=== PATIENT | male | born 1950 | race Caucasian/White ===

== ENCOUNTER 2017-04-15 06:46 | Day surgery (SDC) | payer MEDICARE ==
[~2017-04-15] VITALS: Ht 177.8 cm; Wt 129.1 kg
[~2017-04-15 06:46] MED LIST: AMLO10TA2 PO; ATOR10 PO; BENZ-51 PO; FENO145T37 PO; FLUT16H NASAL; FURO20TA4 PO; GABA-531 PO; GLIP5TAB11 PO; METO100T14 PO; OMEP40CA37 PO; SODIUM CHLORIDE 0.9% 1000ML 1,000 ML IV ONE
[2017-04-15 07:14] VITALS: BP 159/76
[2017-04-15] MEDS ORDERED: VALS160T28 PO (07:38)
[2017-04-15] MEDS ORDERED: PROPOFOL 10 MG/ML 20ML VIAL IV ONE (08:00)
[2017-04-15 08:15] VITALS: BP 90/51
== END 2017-04-15 09:00 | disposition home or self-care (01) ==
LOC: DAH 06:46 → ENDO 06:46
PROVIDERS: ATTEND Internal Medicine Gastroenterology
DX: K21.9 Gastro-esophageal reflux disease without esophagitis (principal); I10 Essential (primary) hypertension; E78.5 Hyperlipidemia, unspecified; E11.9 Type 2 diabetes mellitus without complications; Z98.890 Other specified postprocedural states; Z96.60 Presence of unspecified orthopedic joint implant; Z88.6 Allergy status to analgesic agent
CPT/HCPCS: 43248; 82948 ×2; 93005; A4606; J2704; J7030; G9654

== ENCOUNTER → 2018-08-17 | Outpatient (CLI) | payer OTHER ==
[~2018-08-17] MED LIST changes: -AMLO10TA2 PO; +AMLO10TA7 PO; -ATOR10 PO; -BENZ-51 PO; -FLUT16H NASAL; -GABA-531 PO; -OMEP40CA37 PO; -SODIUM CHLORIDE 0.9% 1000ML 1,000 ML IV ONE; +VALS160T29 PO
== END | disposition home or self-care (01) ==
LOC: RAH 14:08
PROVIDERS: ATTEND Internal Medicine Cardiovascular Disease
DX: Z13.6 Encounter for screening for cardiovascular disorders (principal)
CPT/HCPCS: 75571

== ENCOUNTER → 2018-09-09 | Outpatient (CLI) | payer MEDICARE ==
[~2018-09-09] MED LIST changes: +REGADENOSON 0.4 MG/5 ML PF SYG IVP SCH
== END | disposition home or self-care (01) ==
LOC: RAH 08:43
PROVIDERS: ATTEND Internal Medicine Cardiovascular Disease
DX: I10 Essential (primary) hypertension (principal); R07.89 Other chest pain
CPT/HCPCS: 78452; 93017; 96374; A9500 ×2; J2785

== ENCOUNTER 2020-09-14 06:05 | Day surgery (SDC) | payer OTHER ==
[2020-09-13 15:24] LABS: BASOPHILS % (AUTO) 0.8 % (0.0-5.0); EOSINOPHILS % (AUTO) 4.7 % (0.0-8.0); HEMATOCRIT 39.3 % (42-54); LYMPHOCYTES % (AUTO) 25.1 % (21.0-51.0); MEAN CORPUSCULAR HGB CONC 33.8 g/dL (32.0-36.0); MEAN CORPUSCULAR VOLUME 88.5 fL (79-99); MONOCYTES % (AUTO) 7.1 % (3.0-13.0); NEUTROPHILS % (AUTO) 60.4 % (40.0-77.0); PLATELET COUNT (AUTO) 162 K/uL (130-400); RED BLOOD CELL COUNT(AUTO) 4.44 MIL/uL (4.50-6.20); RED CELL DISTRIBUTION WIDTH 13.5 % (11.0-15.5); WHITE BLOOD COUNT (AUTO) 6.5 K/uL (4.8-10.8)
[2020-09-13 15:26] LABS: APPEARANCE,URINE Clear (CLEAR); BILIRUBIN,URINE Negative (NEGATIVE); COLOR,URINE Yellow (YELLOW); GLUCOSE, URINE (UA) Negative (NEGATIVE); KETONES,URINE Negative (NEGATIVE); LEUKOCYTE ESTERASE ,URINE Negative (NEGATIVE); NITRATE,URINE Negative (NEGATIVE); OCCULT BLOOD,URINE Large (NEGATIVE); PROTEIN,URINE 300 mg/dL (NEGATIVE); UROBILINOGEN,URINE 0.2 mg/dL (0.2-1.0)
[2020-09-13 15:29] VITALS: BP 185/85
[2020-09-13 15:31] LABS: CREATININE 2.1 mg/dL (0.5-1.5); POTASSIUM 4.1 mmol/L (3.5-5.1)
[2020-09-13 15:33] LABS: PROTHROMBIN TIME 10.9 SEC (9.6-11.6)
[2020-09-13 15:34] LABS: PARTIAL THROMBOPLASTIN TIME 23.8 SEC (26.3-35.5)
[2020-09-13 15:49] LABS: BACTERIA,URINE Few /HPF (None Seen); MUCUS,URINE Few LPF (None Seen); SQUAMOUS EPITHELIAL CELL,UR 0-2 /HPF (0-2)
[~2020-09-14] VITALS: Ht 180.3 cm; Wt 124.7 kg
[2020-09-14] VITALS (21 sets, daily range): BP systolic 93–171; BP diastolic 65–80
[~2020-09-14 06:05] MED LIST changes: -AMLO10TA7 PO; +CARV25TA PO; +FENO145T26 PO; -FENO145T37 PO; -FURO20TA4 PO; +FURO40TA5 PO; +GLIP10TA9 PO; -GLIP5TAB11 PO; -METO100T14 PO; +OMEP20CA12 PO; -REGADENOSON 0.4 MG/5 ML PF SYG IVP SCH; +SPIR25TA PO; +UBIQ100C2 PO; -VALS160T29 PO; +VITA-382 PO
[2020-09-14] MEDS ORDERED: NACL 0.9% 1000ML 1,000 ML IV ONE (06:12)
[2020-09-14] MEDS ORDERED: LIDOCAINE PF 100MG/5ML (2%) SYRINGE 5ML ONE (07:18)
[2020-09-14] MEDS ORDERED: MIDAZOLAM HCL 1 MG/ML 2ML VIAL ONE (07:18)
[2020-09-14] MEDS ORDERED: SUCCINYLCHOLINE CHLORIDE 20 MG/ML 10 ML VIAL ONE (07:18)
[2020-09-14] MEDS ORDERED: PROPOFOL 10 MG/ML 20ML VIAL IV ONE ×2 (07:18→07:21)
[2020-09-14] MEDS ORDERED: GLYCOPYRROLATE 1 MG/5 ML SYRINGE ONE (07:18)
[2020-09-14] MEDS ORDERED: DEXAMETHASONE SOD PHOSPHATE 10MG/ML 1ML VIAL ONE (07:18)
[2020-09-14] MEDS ORDERED: FENTANYL CITRATE PF 50 MCG/1 ML 2ML VIAL ONE (07:19)
[2020-09-14] MEDS ORDERED: ONDANSETRON 4MG INJ ONE (07:19)
[2020-09-14] MEDS ORDERED: SODIUM BICARB 50MEQ 50ML VIAL 50 ML ONE (07:19)
[2020-09-14] MEDS ORDERED: ROCURONIUM 10MG/1ML SYR 10 MG/ML ML ONE ×2 (07:19→07:22)
[2020-09-14] MEDS ORDERED: LIDOCAINE HCL 400MG/20ML VIAL ONE (07:19)
[2020-09-14] MEDS ORDERED: NITROGLYCERIN 2 MG VIAL IV ONE (07:19)
[2020-09-14] MEDS ORDERED: NEOSTIGMINE 5MG/5ML SYR IV ONE (07:19)
[2020-09-14] MEDS ORDERED: HEPARIN 10,000 UNIT/10ML (1,000 UNIT/ML) VIAL ONE (07:19)
[2020-09-14] MEDS ORDERED: IODIXANOL 320 MG/ML 100 ML VIAL ONE (07:21)
[2020-09-14] MEDS ORDERED: EPHEDRINE SULFATE 50 MG/ML AMPULE ONE (07:24)
[2020-09-14] MEDS ORDERED: NACL 0.9% 1000ML 1,000 ML IV SCH ×2 (08:00→09:00)
[2020-09-14] MEDS ORDERED: PRAS10TA9 PO (08:29)
[2020-09-14] MEDS ORDERED: DEXTROSE 50%-WATER 50 ML DISP.SYRIN IV PRN (09:00)
[2020-09-14] MEDS ORDERED: GLUCAGON 1MG KIT 1 MG ML IM PRN (09:00)
[2020-09-14] MEDS ORDERED: INSULIN HUMULIN R 100 UNIT/ML 3ML SQ SCH (11:30)
== END 2020-09-14 17:03 | disposition home or self-care (01) ==
LOC: DAH 06:05
PROVIDERS: ATTEND Internal Medicine Cardiovascular Disease
DX: I70.1 Atherosclerosis of renal artery (principal); N17.9 Acute kidney failure, unspecified; K55.1 Chronic vascular disorders of intestine; I10 Essential (primary) hypertension; G47.33 Obstructive sleep apnea (adult) (pediatric); E66.9 Obesity, unspecified; E11.9 Type 2 diabetes mellitus without complications; I25.10 Atherosclerotic heart disease of native coronary artery without angina pectoris; E78.5 Hyperlipidemia, unspecified; Z87.891 Personal history of nicotine dependence; Z68.39 Body mass index [BMI] 39.0-39.9, adult; Z82.49 Family history of ischemic heart disease and other diseases of the circulatory system; Z79.899 Other long term (current) drug therapy; Z79.01 Long term (current) use of anticoagulants; Z98.890 Other specified postprocedural states; Z88.6 Allergy status to analgesic agent; Z88.8 Allergy status to other drugs, medicaments and biological substances
CPT/HCPCS: 36245; 36252; 36415; 71045; 75726; 80048; 81001; 82948 ×2; 85025; 85610; 85730; 93005; A4215; A4216; A4221; A4222; A4223 ×3; A4606; A4663; C1760; C1887; C1894 ×3; J0330; J1100; J1644; J2001; J2250; J2405; J2704 ×2; J2710; J3010; J3490 ×5; J7030; Q9967; 96360; 96361